=== PATIENT | female | born 1990 ===

== ENCOUNTER 2021-11-08 11:32 | Outpatient (CLI) | payer OTHER, SELFPAY ==
--- NOTE | ~2021-11-08 | XR_ITS ---
EXAM: XR lumbar spine min 4V DATE: 11/08/2021 12:09 HISTORY: Chronic Lumbar Spine Pain . COMPARISON: None available. FINDINGS: Right lower quadrant surgical clips. IUD. 5 nonrib-bearing lumbar-type vertebral bodies. Pa rtially formed disc at S1-S2 versus transitional anatomy. Pedicles intact. No pars defect. 2 mm retro listhesis of L5 on S1. Vertebral body heights preserved. Disc spaces maintained. Mild facet sclerosis in the lower lumbar spine. No fracture or dislocation. IMPRESSION: Grade 1 retrolisthesis of L5 on S1. Partially formed disc at S1-S2 versus transitional an atomy. Mild lower lumbar facet arthropathy. Reviewed, dictated and finalized at location K. IMPRESSION: Grade 1 retrolisthesis of L5 on S1. Partially formed disc at S1-S2 versus transitional anatomy. Mild lower lumbar facet arthropathy.
== END 2021-11-08 11:33 ==
LOC: MICIMG 11:41
PROVIDERS: PCP Physician Assistant; Visit Provider Chiropractor
DX: M54.50 Low back pain, unspecified (principal)
CPT/HCPCS: 72110